=== PATIENT | female | born 1945 | race Caucasian/White ===

== ENCOUNTER 2021-07-02 23:36 | Inpatient (IN) | payer OTHER ==
[~2021-07-02] VITALS: Ht 165.1 cm; Wt 75.0 kg
[~2021-07-02 23:36] MED LIST: ASPIRIN CHEWABL81 MG PO; ATORVASTATIN CA20 MG PO; COMBIVENT RESPIM4 GM INH; ESOMEPRAZOLE MA40 MG PO; FLONASE 0.05% N16 GM; HYDROCODON-ACE1 EAC6 PO; ISOSORBIDE MONO60 MG PO; LISINOPRIL-HCT1 EACH PO; LOPRESSOR 25 MG25 MG PO; MECLIZINE HCL12.5 MG PO; NITROSTAT 0.40.4 MG SL; PLAVIX75 MG PO
[2021-07-03 00:17] LABS: HEMOGLOBIN 12.3 gm/dl (12.3-15.3); RED BLOOD COUNT 4.15 M/UL (4.00-5.10); WHITE BLOOD COUNT 9.9 K/UL (4.5-11.0)
[2021-07-03] MEDS ORDERED: LISINOPRIL10 MG PO (10:19)
[2021-07-03] MEDS ORDERED: TIZANIDINE HCL4 MG PO (10:20)
[2021-07-03] MEDS ORDERED: DOXYCYCLINE HY100 MG PO (10:20)
[2021-07-04 02:58] LABS: HEMOGLOBIN 13.4 gm/dl (12.3-15.3); RED BLOOD COUNT 4.53 M/UL (4.00-5.10)
[2021-07-04 03:27] LABS: WHITE BLOOD COUNT 13.5 K/UL (4.5-11.0)
[2021-07-04 03:37] LABS: BUN/CREATININE RATIO 46 (0-10)
[2021-07-05 14:23] LABS: BUN/CREATININE RATIO 49 (0-10)
[2021-07-06 04:19] LABS: HEMOGLOBIN 13.6 gm/dl (12.3-15.3); RED BLOOD COUNT 4.67 M/UL (4.00-5.10); WHITE BLOOD COUNT 11.4 K/UL (4.5-11.0)
[2021-07-06 05:00] LABS: BUN/CREATININE RATIO 42 (0-10)
[2021-07-07 03:58] LABS: BUN/CREATININE RATIO 44 (0-10)
[2021-07-07 12:07] LABS: HEMOGLOBIN 14.2 gm/dl (12.3-15.3); RED BLOOD COUNT 4.93 M/UL (4.00-5.10); WHITE BLOOD COUNT 12.8 K/UL (4.5-11.0)
[2021-07-08 05:16] LABS: HEMOGLOBIN 14.8 gm/dl (12.3-15.3); RED BLOOD COUNT 5.03 M/UL (4.00-5.10)
[2021-07-08 05:22] LABS: WHITE BLOOD COUNT 16.6 K/UL (4.5-11.0)
[2021-07-08 05:33] LABS: BUN/CREATININE RATIO 51 (0-10)
[2021-07-09 02:47] LABS: HEMOGLOBIN 13.8 gm/dl (12.3-15.3); RED BLOOD COUNT 4.76 M/UL (4.00-5.10); WHITE BLOOD COUNT 18.4 K/UL (4.5-11.0)
[2021-07-09 03:20] LABS: BUN/CREATININE RATIO 51 (0-10)
--- NOTE | 2021-07-09 19:45 | NUR ---
I WAS GETTING REPORT FROM THE DAY SHIFT NURSE THE PATIENT HAD A RHYTHM CHANGE, THE PATIENT HAD A 13 BEAT RUN OF VTACH AND AFIB WITH RVR. THE PATIENTS HEART RATE HAD REACHED THE 180S. DR. ESPINO WAS CALLED AND ORDERED FOR THE PATIENT TO HAVE AN EKG AND AMIODORONE PER PROTOCOL. WHILE RECIEVING THE AMIODORONE BOLUS SHE WAS STILL SWITCHING INTO VTACH AND AFIB WITH RVR. DR. ESPINO ORDERED FOR HER TO HAVE ANOTHER AMIODORONE BOLUS. THEN TO START THE MAINTENANCE DOSE. DR ESPINO WAS THEN CALLED AGAIN DUE TO THE PATIENTS BLOOD PRESSURE DROPPING DUE TO THE AMIODORONE DRIP. THE PATIENT WAS THEN TANSFERED TO ICU PER DR GRIMM.
[2021-07-09 20:22] LABS: BUN/CREATININE RATIO 47 (0-10)
[2021-07-10 05:32] LABS: BUN/CREATININE RATIO 56 (0-10)
[2021-07-11 05:24] LABS: HEMOGLOBIN 14.4 gm/dl (12.3-15.3); RED BLOOD COUNT 4.9 M/UL (4.00-5.10); WHITE BLOOD COUNT 19.3 K/UL (4.5-11.0)
[2021-07-11 05:47] LABS: BUN/CREATININE RATIO 60 (0-10)
[2021-07-12 02:22] LABS: HEMOGLOBIN 15.2 gm/dl (12.3-15.3); RED BLOOD COUNT 5.17 M/UL (4.00-5.10); WHITE BLOOD COUNT 19.1 K/UL (4.5-11.0)
[2021-07-12 02:49] LABS: BUN/CREATININE RATIO 63 (0-10)
[2021-07-14 04:28] LABS: HEMOGLOBIN 15.9 gm/dl (12.3-15.3); RED BLOOD COUNT 5.58 M/UL (4.00-5.10)
[2021-07-14 06:53] LABS: BUN/CREATININE RATIO 60 (0-10)
[2021-07-14 17:17] LABS: BUN/CREATININE RATIO 57 (0-10)
[2021-07-14 20:46] LABS: BUN/CREATININE RATIO 56 (0-10)
[2021-07-15 03:18] LABS: HEMOGLOBIN 16.2 gm/dl (12.3-15.3); RED BLOOD COUNT 5.54 M/UL (4.00-5.10)
[2021-07-15 03:42] LABS: BUN/CREATININE RATIO 58 (0-10)
[2021-07-17 00:22] LABS: HEMOGLOBIN 16.9 gm/dl (12.3-15.3); RED BLOOD COUNT 5.81 M/UL (4.00-5.10); WHITE BLOOD COUNT 25.8 K/UL (4.5-11.0)
[2021-07-17 00:44] LABS: BUN/CREATININE RATIO 58 (0-10)
[2021-07-17 10:33] LABS: HEMOGLOBIN 16.4 gm/dl (12.3-15.3); RED BLOOD COUNT 5.44 M/UL (4.00-5.10); WHITE BLOOD COUNT 24.3 K/UL (4.5-11.0)
[2021-07-17 11:05] LABS: BUN/CREATININE RATIO 59 (0-10)
[2021-07-18 04:32] LABS: HEMOGLOBIN 14.8 gm/dl (12.3-15.3); RED BLOOD COUNT 5.15 M/UL (4.00-5.10)
[2021-07-18 04:47] LABS: BUN/CREATININE RATIO 47 (0-10)
[2021-07-19 05:50] LABS: BUN/CREATININE RATIO 61 (0-10)
[2021-07-20 02:11] LABS: HEMOGLOBIN 14.6 gm/dl (12.3-15.3); RED BLOOD COUNT 5.05 M/UL (4.00-5.10); WHITE BLOOD COUNT 16.6 K/UL (4.5-11.0)
[2021-07-20 02:21] LABS: BUN/CREATININE RATIO 57 (0-10)
[2021-07-21 03:03] LABS: BUN/CREATININE RATIO 55 (0-10)
[2021-07-24 17:15] LABS: HEMOGLOBIN 14.3 gm/dl (12.3-15.3); RED BLOOD COUNT 4.9 M/UL (4.00-5.10)
[2021-07-25 10:38] LABS: BUN/CREATININE RATIO 50 (0-10)
[2021-07-26 05:02] LABS: HEMOGLOBIN 12.9 gm/dl (12.3-15.3); RED BLOOD COUNT 4.46 M/UL (4.00-5.10); WHITE BLOOD COUNT 11.3 K/UL (4.5-11.0)
[2021-07-26 05:25] LABS: BUN/CREATININE RATIO 50 (0-10)
[2021-07-26 18:11] LABS: BUN/CREATININE RATIO 45 (0-10)
[2021-07-27 05:22] LABS: HEMOGLOBIN 12.9 gm/dl (12.3-15.3); RED BLOOD COUNT 4.45 M/UL (4.00-5.10); WHITE BLOOD COUNT 10.6 K/UL (4.5-11.0)
[2021-07-28 04:58] LABS: HEMOGLOBIN 12.7 gm/dl (12.3-15.3); RED BLOOD COUNT 4.27 M/UL (4.00-5.10); WHITE BLOOD COUNT 10.4 K/UL (4.5-11.0)
[2021-07-28 05:25] LABS: BUN/CREATININE RATIO 43 (0-10)
[2021-07-30 02:40] LABS: HEMOGLOBIN 12.3 gm/dl (12.3-15.3); RED BLOOD COUNT 4.16 M/UL (4.00-5.10); WHITE BLOOD COUNT 9.1 K/UL (4.5-11.0)
[2021-07-30 06:46] LABS: BUN/CREATININE RATIO 35 (0-10)
[2021-07-31 08:39] LABS: HEMOGLOBIN 12.9 gm/dl (12.3-15.3); RED BLOOD COUNT 4.42 M/UL (4.00-5.10); WHITE BLOOD COUNT 8.7 K/UL (4.5-11.0)
[2021-07-31 08:55] LABS: BUN/CREATININE RATIO 37 (0-10)
[2021-08-01 08:22] LABS: HEMOGLOBIN 13.2 gm/dl (12.3-15.3); RED BLOOD COUNT 4.42 M/UL (4.00-5.10)
[2021-08-01 09:12] LABS: BUN/CREATININE RATIO 51 (0-10)
[2021-08-02 10:37] LABS: HEMOGLOBIN 14.4 gm/dl (12.3-15.3); RED BLOOD COUNT 4.8 M/UL (4.00-5.10); WHITE BLOOD COUNT 7.2 K/UL (4.5-11.0)
[2021-08-02 11:03] LABS: BUN/CREATININE RATIO 50 (0-10)
[2021-08-03 02:23] LABS: HEMOGLOBIN 12.7 gm/dl (12.3-15.3); RED BLOOD COUNT 4.33 M/UL (4.00-5.10); WHITE BLOOD COUNT 6.6 K/UL (4.5-11.0)
[2021-08-03 02:43] LABS: BUN/CREATININE RATIO 68 (0-10)
[2021-08-04 07:05] LABS: BUN/CREATININE RATIO 57 (0-10)
[2021-08-04 12:20] LABS: RED BLOOD COUNT 4.65 M/UL (4.00-5.10); WHITE BLOOD COUNT 6.4 K/UL (4.5-11.0)
[2021-08-05 07:03] LABS: BUN/CREATININE RATIO 49 (0-10); HEMOGLOBIN 13.8 gm/dl (12.3-15.3); RED BLOOD COUNT 4.65 M/UL (4.00-5.10); WHITE BLOOD COUNT 6.3 K/UL (4.5-11.0)
[2021-08-06 02:20] LABS: RED BLOOD COUNT 4.6 M/UL (4.00-5.10); WHITE BLOOD COUNT 6.6 K/UL (4.5-11.0)
[2021-08-06 02:57] LABS: BUN/CREATININE RATIO 74 (0-10)
[2021-08-07 03:12] LABS: RED BLOOD COUNT 4.6 M/UL (4.00-5.10); WHITE BLOOD COUNT 6.4 K/UL (4.5-11.0)
[2021-08-07 04:04] LABS: BUN/CREATININE RATIO 69 (0-10)
[2021-08-07] MEDS ORDERED: HYDROCODON-ACE1 EAC6 PO (16:42)
[2021-08-07] MEDS ORDERED: ATORVASTATIN CA40 MG PO (16:42)
[2021-08-07] MEDS ORDERED: ESOMEPRAZOLE MA40 MG PO (16:42)
[2021-08-07] MEDS ORDERED: THERAGRAN M TAB1 EA PO (16:42)
[2021-08-07] MEDS ORDERED: NYSTATIN60 GM TOP (16:42)
[2021-08-07] MEDS ORDERED: DOCUSATE SODIU100 MG PO (16:42)
[2021-08-07] MEDS ORDERED: MELATONIN3 MG PO (16:42)
[2021-08-07] MEDS ORDERED: LIDOCAINE PAIN1 EACH EXT (16:42)
[2021-08-07] MEDS ORDERED: ACYCLOVIR200 MG PO (16:42)
[2021-08-07] MEDS ORDERED: TIZANIDINE HCL4 MG PO (16:42)
[2021-08-07] MEDS ORDERED: IPRAT-ALBUT 0.5-3 ML NEB (16:42)
[2021-08-07] MEDS ORDERED: SENNA LAX8.6 MG PO (16:42)
[2021-08-07] MEDS ORDERED: BUDESONIDE0.5 MG/2 M NEB (16:42)
[2021-08-07] MEDS ORDERED: ISOSORBIDE MONO30 MG PO (16:46)
[2021-08-07] MEDS ORDERED: QUETIAPINE FUMA25 MG PO (16:46)
[2021-08-07] MEDS ORDERED: AYR NASAL SPRAY50 ML (16:46)
[2021-08-07] MEDS ORDERED: LOPRESSOR 50 MG50 MG PO (16:46)
[2021-08-09 04:41] LABS: WHITE BLOOD COUNT 6.2 K/UL (4.5-11.0)
[2021-08-09 04:42] LABS: RED BLOOD COUNT 4.07 M/UL (4.00-5.10)
--- NOTE | 2021-08-09 05:14 | NUR ---
PT'S HEART RATE SUDDENLY INCREASED TO 158-161 SINUS TACHYCARDIA. CALLED MD TO OBTAIN NEW ORDERS AND PUSHED LOPRESSOR 5MG PER ORDERED AFTER VERIFYING THE MD WAS AWARE OF SOME HYPOTENSION WITH SYSTOLIC IN 90'S. MD ORDERED 500ML BOLUS TO COMPENSATE B/P WITH LOPRESSOR. EKG CONFIRMED SINUS TACH, LOPRESSOR DID NOT FIX THE HEART RATE, STILL SINUS 150'S. NOTIFIED MD AGAIN AND MD ORDERED 6MG OF ADENOSINE. AFTER VERIFYING WITH MAP COLORER THE PROTOCOL ON PUSHING ADENOSINE ON THE FLOOR, CALLED MD BACK TO REQUEST HE COME TO BEDSIDE FOR THE ADMINISTRATION. WHEN MD DID NOT COME, STEVE REACHED OUT TO ER MD DR. RAYMUNDO TO COME TO BEDSIDE. DR. RAYMUNDO WAS THERE WHEN WE PUSHED THE ADENOSINE AND WHEN IT DIDN'T WORK SUGGESTED CARDIOVERSION OR SOME OTHER MEDICATION. AT THIS TIME, ADÁN WILSONMAP COLORER, CONTACTED DR. HEDRICK AGAIN, WHO ORDERED AMIODORONE BOLUS AND DRIP, BECAUSE PT FLIPPED INTO AFLUTTER AFTER THE ADENOSINE, IN 150-160'S, HE WAS COMING TO THE FLOOR. WHEN FLORIDALMA GOT TO THE FLOOR, HE ASSESSED THE PT AND ALSO AGREED THE PT NEEDED CARDIOVERTED. WE EMERGENTLY CARDIOVERTED THE PT AT 0402. PT RETURNED TO SINUS RHYTHM. FAMILY WAS WITH THE PT.
[2021-08-09 05:30] LABS: BUN/CREATININE RATIO 74 (0-10)
[2021-08-11 01:42] LABS: HEMOGLOBIN 12.3 gm/dl (12.3-15.3); RED BLOOD COUNT 4.17 M/UL (4.00-5.10); WHITE BLOOD COUNT 7.7 K/UL (4.5-11.0)
[2021-08-11 02:09] LABS: BUN/CREATININE RATIO 88 (0-10)
[2021-08-13 02:12] LABS: HEMOGLOBIN 13.8 gm/dl (12.3-15.3); RED BLOOD COUNT 4.59 M/UL (4.00-5.10)
[2021-08-13 02:29] LABS: BUN/CREATININE RATIO 64 (0-10)
--- NOTE | 2021-08-14 04:21 | NUR ---
AT 0120 I CALLED THE SON, JOON, TO INFORM HIM OF PATIENTS DECLINE. THE DAUGHTER IS IN THE ROOM AND IS ALREADY AWARE. FAMILY AWARE AND SAID THEY WOULD BE HERE SOON TO MAKE DECISIONS BASED ON HER RES. STATUS.
--- NOTE | 2021-08-14 04:23 | NUR ---
TX PT TO ICU VIA RESOURCE NURSE, PATIENT WAS MONITORED, FAMILY IN ROOM AND AWARE. PATIENTS LAST SET OF VITALS BEFORE LEAVING THE FLOOR WAS 114/78 (84), HR 117, RR 32 AND O2 AT 90% ON MAXED AVAP SETTINGS.
[2021-08-14 07:20] LABS: RED BLOOD COUNT 4.26 M/UL (4.00-5.10)
[2021-08-14 07:46] LABS: BUN/CREATININE RATIO 47 (0-10)
[2021-08-14 07:56] LABS: WHITE BLOOD COUNT 18.3 K/UL (4.5-11.0)
== END 2021-08-14 16:35 | disposition expired | DRG 208 ==
LOC: ER1 23:36 → PROG CARE 07-03 04:39 → CCU 07-03 04:39 → CDU 07-03 04:39 → PROG CARE 07-03 21:45 → CCU 07-09 19:42 → PROG CARE 07-11 23:59 → CCU 07-26 16:32 → PROG CARE 08-02 16:56 → CCU 08-14 04:00
PROVIDERS: Internal Medicine; Internal Medicine Critical Care Medicine; Internal Medicine Infectious Disease; Internal Medicine Interventional Cardiology; Internal Medicine Pulmonary Disease; Student in an Organized Health Care Education/Training Program; ADMIT Internal Medicine
PROC: 5A0935A Assistance with Respiratory Ventilation, Less than 24 Consecutive Hours, High Flow/Velocity Cannula (ICD-10-PCS; 2021-07-02)
PROC: XW033E5 Introduction of Remdesivir Anti-infective into Peripheral Vein, Percutaneous Approach, New Technology Group 5 (ICD-10-PCS; principal; 2021-07-03)
PROC: XW033H5 Introduction of Tocilizumab into Peripheral Vein, Percutaneous Approach, New Technology Group 5 (ICD-10-PCS; 2021-07-03)
PROC: 8E0ZXY6 Isolation (ICD-10-PCS; 2021-07-03)
PROC: 3E0333Z Introduction of Anti-inflammatory into Peripheral Vein, Percutaneous Approach (ICD-10-PCS; 2021-07-03)
PROC: 3E03329 Introduction of Other Anti-infective into Peripheral Vein, Percutaneous Approach (ICD-10-PCS; 2021-07-03)
PROC: B24BZZZ Ultrasonography of Heart with Aorta (ICD-10-PCS; 2021-07-03)
PROC: 3E033GC Introduction of Other Therapeutic Substance into Peripheral Vein, Percutaneous Approach (ICD-10-PCS; 2021-07-03)
PROC: 5A09357 Assistance with Respiratory Ventilation, Less than 24 Consecutive Hours, Continuous Positive Airway Pressure (ICD-10-PCS; 2021-07-03)
PROC: 5A0935A Assistance with Respiratory Ventilation, Less than 24 Consecutive Hours, High Flow/Velocity Cannula (ICD-10-PCS; 2021-07-03)
PROC: 5A09357 Assistance with Respiratory Ventilation, Less than 24 Consecutive Hours, Continuous Positive Airway Pressure (ICD-10-PCS; 2021-07-03)
PROC: 5A0935A Assistance with Respiratory Ventilation, Less than 24 Consecutive Hours, High Flow/Velocity Cannula (ICD-10-PCS; 2021-07-04)
PROC: 5A09357 Assistance with Respiratory Ventilation, Less than 24 Consecutive Hours, Continuous Positive Airway Pressure (ICD-10-PCS; 2021-07-04)
PROC: 5A0935A Assistance with Respiratory Ventilation, Less than 24 Consecutive Hours, High Flow/Velocity Cannula (ICD-10-PCS; 2021-07-04)
PROC: 5A09357 Assistance with Respiratory Ventilation, Less than 24 Consecutive Hours, Continuous Positive Airway Pressure (ICD-10-PCS; 2021-07-04)
PROC: 5A0935A Assistance with Respiratory Ventilation, Less than 24 Consecutive Hours, High Flow/Velocity Cannula (ICD-10-PCS; 2021-07-04)
PROC: 5A09357 Assistance with Respiratory Ventilation, Less than 24 Consecutive Hours, Continuous Positive Airway Pressure (ICD-10-PCS; 2021-07-05)
PROC: 5A0935A Assistance with Respiratory Ventilation, Less than 24 Consecutive Hours, High Flow/Velocity Cannula (ICD-10-PCS; 2021-07-05)
PROC: 5A09357 Assistance with Respiratory Ventilation, Less than 24 Consecutive Hours, Continuous Positive Airway Pressure (ICD-10-PCS; 2021-07-06)
PROC: 5A0935A Assistance with Respiratory Ventilation, Less than 24 Consecutive Hours, High Flow/Velocity Cannula (ICD-10-PCS; 2021-07-06)
PROC: 5A09457 Assistance with Respiratory Ventilation, 24-96 Consecutive Hours, Continuous Positive Airway Pressure (ICD-10-PCS; 2021-07-06)
PROC: 5A0935A Assistance with Respiratory Ventilation, Less than 24 Consecutive Hours, High Flow/Velocity Cannula (ICD-10-PCS; 2021-07-08)
PROC: 5A09357 Assistance with Respiratory Ventilation, Less than 24 Consecutive Hours, Continuous Positive Airway Pressure (ICD-10-PCS; 2021-07-09)
PROC: 5A0935A Assistance with Respiratory Ventilation, Less than 24 Consecutive Hours, High Flow/Velocity Cannula (ICD-10-PCS; 2021-07-09)
PROC: 5A09357 Assistance with Respiratory Ventilation, Less than 24 Consecutive Hours, Continuous Positive Airway Pressure (ICD-10-PCS; 2021-07-09)
PROC: 5A0935A Assistance with Respiratory Ventilation, Less than 24 Consecutive Hours, High Flow/Velocity Cannula (ICD-10-PCS; 2021-07-10)
PROC: 5A09357 Assistance with Respiratory Ventilation, Less than 24 Consecutive Hours, Continuous Positive Airway Pressure (ICD-10-PCS; 2021-07-11)
PROC: 5A0945A Assistance with Respiratory Ventilation, 24-96 Consecutive Hours, High Flow/Velocity Cannula (ICD-10-PCS; 2021-07-11)
PROC: 5A09357 Assistance with Respiratory Ventilation, Less than 24 Consecutive Hours, Continuous Positive Airway Pressure (ICD-10-PCS; 2021-07-13)
PROC: 5A0955A Assistance with Respiratory Ventilation, Greater than 96 Consecutive Hours, High Flow/Velocity Cannula (ICD-10-PCS; 2021-07-13)
PROC: 3E043XZ Introduction of Vasopressor into Central Vein, Percutaneous Approach (ICD-10-PCS; 2021-07-24)
PROC: 0W9930Z Drainage of Right Pleural Cavity with Drainage Device, Percutaneous Approach (ICD-10-PCS; 2021-07-24)
PROC: BB4BZZZ Ultrasonography of Pleura (ICD-10-PCS; 2021-07-24)
PROC: 5A0955A Assistance with Respiratory Ventilation, Greater than 96 Consecutive Hours, High Flow/Velocity Cannula (ICD-10-PCS; 2021-07-31)
PROC: 0W9930Z Drainage of Right Pleural Cavity with Drainage Device, Percutaneous Approach (ICD-10-PCS; 2021-08-01)
PROC: BB4BZZZ Ultrasonography of Pleura (ICD-10-PCS; 2021-08-01)
PROC: 0W9930Z Drainage of Right Pleural Cavity with Drainage Device, Percutaneous Approach (ICD-10-PCS; 2021-08-08)
PROC: BB4BZZZ Ultrasonography of Pleura (ICD-10-PCS; 2021-08-08)
PROC: 02HV33Z Insertion of Infusion Device into Superior Vena Cava, Percutaneous Approach (ICD-10-PCS; 2021-08-14)
PROC: B548ZZA Ultrasonography of Superior Vena Cava, Guidance (ICD-10-PCS; 2021-08-14)
PROC: 5A1935Z Respiratory Ventilation, Less than 24 Consecutive Hours (ICD-10-PCS; 2021-08-14)
PROC: 0BH17EZ Insertion of Endotracheal Airway into Trachea, Via Natural or Artificial Opening (ICD-10-PCS; 2021-08-14)
PROC: 5A09357 Assistance with Respiratory Ventilation, Less than 24 Consecutive Hours, Continuous Positive Airway Pressure (ICD-10-PCS; 2021-08-14)
DX: U07.1 COVID-19 (principal); J12.82 Pneumonia due to coronavirus disease 2019; J80 Acute respiratory distress syndrome; Z66 Do not resuscitate; J15.9 Unspecified bacterial pneumonia; R65.21 Severe sepsis with septic shock; I50.33 Acute on chronic diastolic (congestive) heart failure; G92.9 Unspecified toxic encephalopathy; A41.9 Sepsis, unspecified organism; B37.1 Pulmonary candidiasis; I21.A1 Myocardial infarction type 2; R57.9 Shock, unspecified; J93.83 Other pneumothorax; I48.92 Unspecified atrial flutter; K56.7 Ileus, unspecified; E87.1 Hypo-osmolality and hyponatremia; J93.12 Secondary spontaneous pneumothorax; I47.1 Supraventricular tachycardia; D84.9 Immunodeficiency, unspecified; R57.1 Hypovolemic shock; I46.8 Cardiac arrest due to other underlying condition; I25.10 Atherosclerotic heart disease of native coronary artery without angina pectoris; L89.151 Pressure ulcer of sacral region, stage 1; R04.0 Epistaxis; G83.9 Paralytic syndrome, unspecified; J43.9 Emphysema, unspecified; I11.0 Hypertensive heart disease with heart failure; K21.9 Gastro-esophageal reflux disease without esophagitis; J84.10 Pulmonary fibrosis, unspecified; E78.5 Hyperlipidemia, unspecified; F03.90 Unspecified dementia, unspecified severity, without behavioral disturbance, psychotic disturbance, mood disturbance, and anxiety; G47.00 Insomnia, unspecified; T40.605A Adverse effect of unspecified narcotics, initial encounter; I48.0 Paroxysmal atrial fibrillation; E66.9 Obesity, unspecified; K63.89 Other specified diseases of intestine; E87.6 Hypokalemia; G89.29 Other chronic pain; M54.9 Dorsalgia, unspecified; R53.81 Other malaise; J02.9 Acute pharyngitis, unspecified; Z79.01 Long term (current) use of anticoagulants; Z99.81 Dependence on supplemental oxygen; Z51.5 Encounter for palliative care; Z95.1 Presence of aortocoronary bypass graft; Z88.6 Allergy status to analgesic agent; Z88.8 Allergy status to other drugs, medicaments and biological substances; Z68.24 Body mass index [BMI] 24.0-24.9, adult; Z23 Encounter for immunization; Z87.891 Personal history of nicotine dependence; Z82.49 Family history of ischemic heart disease and other diseases of the circulatory system; Z91.030 Bee allergy status
CPT/HCPCS: ECHO; 31500; 36415; 36600; 71045; 71250; 71275; 76536; 80048; 80053; 80202; 82533; 82550; 82553; 82728; 82803; 82962; 83036; 83605; 83735; 83874; 83880; 84100; 84132; 84484; 85025; 85027; 85379; 85610; 85730; 86140; 87040; 92610; 93005; 93306; 94002; 94640; 94660; 94760; 96374; 96375; 96376; 97110; 97110-GP-CQ; 97162; 97164; 97166; 97168; 97530; 97530-GP-CQ; 99285; A6212; C1729; C9113; J0153; J0248; J0330; J0461; J0692; J1100; J1630; J1644; J1650; J1940; J1956; J2060; J2185; J2250; J2270; J2310; J2370; J2405; J2704; J3370; J3475; J3480; J3486; J7030; J7040; J7050; J7070; Q0249; Q9967; U0002